=== PATIENT | female | born 1990 | race Caucasian/White ===

== ENCOUNTER → 2018-10-18 16:52 | Outpatient (CLI) | payer MEDICAID, SELFPAY ==
[2018-10-18 14:49] VITALS: BMI 28.2
[2018-10-18 20:14] LABS: Chlamydia Trachomatis by PCR Negative (Negative); Neisserai gonorrhoeae by PCR Negative (Negative); Probe Check PASS; Sample Adequacy Control PASS; Specimen Processing Control PASS
[2018-10-21 14:30] LABS: HPV Reflexed? NOT INDICATED
== END ==
PROVIDERS: Family Provider Family Medicine; PCP Family Medicine; Referring Provider Obstetrics & Gynecology; Visit Provider Obstetrics & Gynecology
DX: Z34.90 Encounter for supervision of normal pregnancy, unspecified, unspecified trimester (principal); Z12.4 Encounter for screening for malignant neoplasm of cervix
CPT/HCPCS: 87086; 87491; 87591; 88175; G0145

== ENCOUNTER → 2018-10-18 18:05 | Outpatient (CLI) | payer MEDICAID, SELFPAY ==
[2018-10-18 14:18] VITALS: BMI 28.2
[2018-10-18 14:49] VITALS: BMI 28.2
--- NOTE | 2018-10-18 18:08 | US_ITS ---
STUDY: SECOND AND THIRD TRIMESTER OBSTETRICAL ULTRASOUND REASON FOR EXAM: Female, 28 years old. Anatomy LMP: 05/28/2018 TECHNIQUE: Transabdominal TECHNICAL QUALITY: Adequate. PRIOR ULTRASOUND: None. FINDINGS: There is a single intrauterine fetus. The fetus is in a variable presentation. There is demonstrated cardiac activity with a heart rate of 161 bpm. There is a grossly normal amniotic fluid volume. The largest amniotic fluid pocket measures 5.6 cm.The placenta is posterior with a marginal previa. There are Grade 0 placental changes. The cervix measures 4.4 cm in length. The adnexal regions are not visualized. BIOMETRY: BPD: 4.67 cm: 20 weeks, 1 days HC: 18.14: 20 weeks, 4 days AC: 15.25: 20 weeks, 4 days FL: 3.25: 20 weeks, 1 days age by current US: 20 weeks, 3 days. DEBBIE by current US: 03/04/2019. Estimated weight: 347 grams, +/- 51 grams, 39 %. Age by LMP: 20 weeks, 3 days. DEBBIE by LMP: 03/04/2019. ANATOMY: Gender: Male Cranium: Normal lateral ventricles. Normal choroid plexus. Normal cerebellum. Normal cisterna magna. Normal face, nose and lips. Chest: Normal 4-chamber heart. Abdomen/Pelvis: Normal diaphragm. Normal stomach. Normal abdominal wall. Normal cord insertion. Normal 3 vessel cord. Question of mild bilateral pyelectasis. Normal bladder. Spine: Normal cervical spine. Normal thoracic spine. Normal lumbar spine. Normal sacrum. Extremities: Normal bilateral upper extremities. Normal bilateral lower extremities. US/OB Anatomy Scan IMPRESSION: Intrauterine gestation with sonographic age of 20 weeks 3 days. Cervix is closed. Positive cardiac activity. Normal amniotic fluid volume. The placenta is posterior with a marginal previa. Question of mild bilateral pyelectasis. Continued ultrasound follow-up is recommended. Electronically Signed: Shabbir Llanos MD at 20:48 EDT Tel , Service support ,
[2018-10-18 20:14] LABS: Absolute Lymphocyte Count 3.59 X10^3/uL (0.83-4.51); Absolute Neutrophil Count 7.1 X10^3/uL (2.0-7.7); Basophil# 0.02 X10^3/uL; Basophil% 0.2 % (0-1); Eosinophil# 0.04 X10^3/uL; Eosinophils% 0.4 % (0-5); Hematocrit 35.4 % (37-47); Hemoglobin 11.6 g/dL (12.0-15.0); Lymphocyte # 3.59 X10^3/ul (4.0); Lymphocyte % 31.6 % (19-41); Mean Corp Hgb Conc 32.8 g/dL (32-36); Mean Corpuscular Hgb 29.7 pg (27.0-32.0); Mean Corpuscular Volume 90.8 fL (81-99); Mean Platelet Vol. 9.2 fl (6.2-12.0); Monocyte# 0.57 X10^3/uL; NRBC Flagged by Analyzer 0 % (0-5); Neutrophil % 62.4 % (47-70); Platelet Count 376 K/mm3 (150-450); RBC Distribution Width CV 12.1 % (11.6-14.6); RBC Distribution Width SD 40.2 fl (35.1-43.9); White Blood Count 11.4 K/mm3 (4.4-11.0)
[2018-10-18 22:13] LABS: HIV - WCH Non-Reactive (Nonreactive); Rubella IgG 7.2 IU/mL
[2018-10-21 01:39] LABS: Rapid Plasmin Reagin (RPR) NONREACTIVE (NONREACTIVE)
== END ==
PROVIDERS: Family Provider Family Medicine; PCP Family Medicine; Visit Provider Obstetrics & Gynecology
DX: Z34.82 Encounter for supervision of other normal pregnancy, second trimester (principal); Z12.4 Encounter for screening for malignant neoplasm of cervix
CPT/HCPCS: 76805; 85025; 86592; 86703; 86762; 86850; 86900; 86901; 87086; 87088; 87491; 87591; 87624; 88175; G0145

== ENCOUNTER → 2018-12-14 12:12 | Outpatient (CLI) | payer MEDICAID, SELFPAY ==
[2018-12-14 11:28] VITALS: BMI 30.8
[2018-12-14 13:03] LABS: Absolute Lymphocyte Count 2.43 X10^3/uL (0.83-4.51); Absolute Neutrophil Count 8.4 X10^3/uL (2.0-7.7); Basophil# 0.02 X10^3/uL; Basophil% 0.2 % (0-1); Eosinophil# 0.03 X10^3/uL; Eosinophils% 0.3 % (0-5); Hematocrit 32.7 % (37-47); Hemoglobin 10.7 g/dL (12.0-15.0); Lymphocyte # 2.43 X10^3/ul (4.0); Lymphocyte % 21.4 % (19-41); Mean Corp Hgb Conc 32.7 g/dL (32-36); Mean Corpuscular Hgb 29.6 pg (27.0-32.0); Mean Corpuscular Volume 90.6 fL (81-99); Mean Platelet Vol. 8.9 fl (6.2-12.0); Monocyte# 0.46 X10^3/uL; Monocyte% 4.1 % (0-10); NRBC Flagged by Analyzer 0 % (0-5); Neutrophil # 8.35 X10^3/uL (2.7-7.7); Neutrophil % 73.6 % (47-70); Platelet Count 356 K/mm3 (150-450); RBC Distribution Width CV 12.6 % (11.6-14.6); RBC Distribution Width SD 41.3 fl (35.1-43.9); Red Blood Count 3.61 M/mm3 (4.2-5.4); White Blood Count 11.3 K/mm3 (4.4-11.0)
[2018-12-14 13:10] LABS: Glucose Challenge Gest 1H 50g 139 mg/dL (70-140)
== END ==
PROVIDERS: Nurse Practitioner Women's Health; Family Provider Family Medicine; PCP Family Medicine; Referring Provider Obstetrics & Gynecology; Visit Provider Obstetrics & Gynecology
DX: Z34.93 Encounter for supervision of normal pregnancy, unspecified, third trimester (principal)
CPT/HCPCS: 36415; 82950; 85025

== ENCOUNTER → 2018-12-19 07:27 | Outpatient (CLI) | payer MEDICAID, SELFPAY ==
[2018-12-14 11:28] VITALS: BMI 30.8
[2018-12-19 08:23] LABS: Glucose GTT-Gestation. Fasting 85 mg/dL (<105)
[2018-12-19 09:49] LABS: Glucose GTT-Gestational 1 Hr 129 mg/dL (<190)
[2018-12-19 10:44] LABS: Glucose GTT-Gestational 2 Hr 99 mg/dL (<165)
[2018-12-19 11:29] LABS: Glucose GTT-Gestational 3 Hr 105 L (<145)
== END ==
PROVIDERS: Family Provider Family Medicine; PCP Family Medicine; Referring Provider Nurse Practitioner Women's Health; Visit Provider Nurse Practitioner Women's Health
DX: R73.09 Other abnormal glucose (principal)
CPT/HCPCS: 36415; 82951; 82952

== ENCOUNTER → 2018-12-21 12:16 | Outpatient (CLI) | payer MEDICAID, SELFPAY ==
[2018-12-14 11:28] VITALS: BMI 30.8
--- NOTE | 2018-12-21 12:19 | US_ITS ---
STUDY: SECOND AND THIRD TRIMESTER OBSTETRICAL ULTRASOUND - LIMITED REASON FOR EXAM: Female, 28 years old follow-up for placenta previa. May 18, 2018. LMP: May 18, 2018. PRIOR ULTRASOUND: Comparison is made with prior sonogram dated October 18, 2018. TECHNIQUE: Transabdominal TECHNICAL QUALITY: Adequate. FINDINGS: There is a single intrauterine fetus. The fetus is in a cephalic presentation. There is demonstrated cardiac activity with a heart rate of 133 bpm. There is a normal amniotic fluid volume. The largest amniotic fluid pocket measures 4.77 x 3.4 cm. The amniotic fluid index (JONATHAN) is 15.95 cm. The placenta is posterior and low lying but not previa in location. The tip of the placenta is 2 cm from the cervical os. There are Grade 1 placental changes. The cervix measures 4.9 cm in length. There is a membrane arising from the placenta 1 cm proximal to the cervical os which enters the amniotic fluid. This is unchanged. BIOMETRY: BPD: 7.75 cm: 31 weeks, 1 days HC: 27.8 cm: 30 weeks, 4 days AC: 25.99 cm: 30 weeks, 1 days FL: 5.72 cm: 30 weeks, 0 days Age by LMP: 29 weeks, 4 days. DEBBIE by LMP: March 04, 2019. age by prior US: 29 weeks, 4 days. DEBBIE by prior US: March 04, 2019. age by current US: 30 weeks, 4 days. DEBBIE by current US: February 25, 2019. Estimated weight: 1527 grams, +/- 223 grams, 60 percentile. US/OB Limited With Biometrics IMPRESSION: Single live intrauterine gestation with a mean gestational age of 29 weeks and 4 days. The measurements obtained today following thin the normal expected range. Low-lying placenta with a membrane arising from the distal tip of the placenta. Electronically Signed: Jacob Wisdom, at 15:57 EDT , Service support ,
== END ==
PROVIDERS: Family Provider Family Medicine; PCP Family Medicine; Referring Provider Nurse Practitioner Women's Health; Visit Provider Nurse Practitioner Women's Health
DX: O44.20 Partial placenta previa NOS or without hemorrhage, unspecified trimester (principal); Z3A.00 Weeks of gestation of pregnancy not specified
CPT/HCPCS: 76816

== ENCOUNTER 2018-12-28 12:04 | Outpatient (CLI) | payer MEDICAID, SELFPAY ==
[2018-12-28 11:33] VITALS: BMI 30.8
[2018-12-28 12:34] VITALS: BMI 30.9
[2018-12-28 13:15] LABS: Protein, Urine (Random) 20.1 mg/dL (<11.9); Protein:Creat Ratio 153 mg/g CRE (0-200)
--- NOTE | 2018-12-31 01:02 | OB.TRI.PN_ITS ---
Progress Notes Date of Service: 12/28/18 Progress Note: Patient presents for triage evaluation secondary to elevated blood pressures in the office FHT: 130 Moderate variability reactive no decelerations category I tracing [place]: Irregular contractions Assessment and plan: Elevated blood pressures in triage within normal limits and labs within normal limits negative proteinuria reactive NST, reassuring maternal and status patient discharged to home to follow-up as scheduled. See problem list details for additional plan information. Laboratory Studies: Laboratory Tests 12/28/18 Range/Units 12:45 U Random Total Protein 20.1 H (<11.9) mg/dL Urine Creatinine 131.00 (NO RANGE EST.) mg/dL Protein/Creatinin Ratio 153 (0-200) mg/g CRE - Problem List (1) Elevated blood pressure affecting in third trimester, antepartum Status: Acute Multi Select Codes - Urinary/Genital Urinary/Genital CPT Codes: 29589-31 non-stress test Interp
== END 2018-12-28 14:00 | disposition home or self-care (01) ==
LOC: WPOUT 12:08 → OBT 12:30
PROVIDERS: Family Provider Family Medicine; PCP Family Medicine; Referring Provider Obstetrics & Gynecology; Visit Provider Obstetrics & Gynecology
DX: O16.3 Unspecified maternal hypertension, third trimester (principal); Z3A.00 Weeks of gestation of pregnancy not specified
CPT/HCPCS: 59025; 59050; 82570; 84156; 99218; G0378

== ENCOUNTER 2019-02-07 16:15 | Outpatient (CLI) | payer MEDICAID, SELFPAY ==
[2019-01-25 10:36] VITALS: BMI 30.9
[2019-02-07 16:42] VITALS: BMI 33.0
--- NOTE | 2019-02-16 04:41 | OB.TRI.PN ---
Progress Notes Date of Service: 02/07/19 Progress Note: Patient presents for triage evaluation secondary to labor contractions FHT: 130 Moderate variability reactive no decelerations category I tracing [place]: Irregular contractions Assessment and plan: False labor reactive NST, reassuring maternal and status patient discharged to home to follow-up scheduled. See problem list details for additional plan information. Multi Select Codes - Urinary/Genital Urinary/Genital CPT Codes: 01105-86 non-stress test Interp
== END 2019-02-07 18:00 | disposition home or self-care (01) ==
LOC: WPOUT 16:21 → WP 16:22
PROVIDERS: Family Provider Family Medicine; PCP Family Medicine; Referring Provider Obstetrics & Gynecology; Visit Provider Obstetrics & Gynecology
DX: O47.9 False labor, unspecified (principal); Z3A.00 Weeks of gestation of pregnancy not specified
CPT/HCPCS: 59025; 59050; 99218; G0378

== ENCOUNTER → 2019-02-08 12:02 | Outpatient (CLI) | payer MEDICAID, SELFPAY ==
[2019-02-08 10:53] VITALS: BMI 33.0
[2019-02-08 12:42] LABS: Absolute Lymphocyte Count 2.46 X10^3/uL (0.83-4.51); Absolute Neutrophil Count 7.4 X10^3/uL (2.0-7.7); Basophil# 0.01 X10^3/uL; Basophil% 0.1 % (0-1); Eosinophil# 0.04 X10^3/uL; Eosinophils% 0.4 % (0-5); Hematocrit 33.8 % (37-47); Hemoglobin 11.2 g/dL (12.0-15.0); Lymphocyte # 2.46 X10^3/ul (4.0); Lymphocyte % 23.6 % (19-41); Mean Corp Hgb Conc 33.1 g/dL (32-36); Mean Corpuscular Hgb 29.8 pg (27.0-32.0); Mean Corpuscular Volume 89.9 fL (81-99); Mean Platelet Vol. 9.1 fl (6.2-12.0); Monocyte# 0.51 X10^3/uL; Monocyte% 4.9 % (0-10); NRBC Flagged by Analyzer 0 % (0-5); Neutrophil # 7.36 X10^3/uL (2.7-7.7); Neutrophil % 70.4 % (47-70); Platelet Count 372 K/mm3 (150-450); RBC Distribution Width CV 12.6 % (11.6-14.6); RBC Distribution Width SD 41.6 fl (35.1-43.9); Red Blood Count 3.76 M/mm3 (4.2-5.4); White Blood Count 10.4 K/mm3 (4.4-11.0)
[2019-02-08 13:20] LABS: Hepatitis B Surface Antigen Non-Reactive (Nonreactive)
== END ==
PROVIDERS: Family Provider Family Medicine; PCP Family Medicine; Referring Provider Obstetrics & Gynecology; Visit Provider Obstetrics & Gynecology
DX: O99.013 Anemia complicating pregnancy, third trimester (principal); Z3A.00 Weeks of gestation of pregnancy not specified
CPT/HCPCS: 36415; 85025; 87081; 87340

== ENCOUNTER → 2019-02-13 13:54 | Outpatient (CLI) | payer MEDICAID, SELFPAY ==
[2019-02-08 10:53] VITALS: BMI 33.0
--- NOTE | 2019-02-13 13:55 | US_ITS ---
STUDY: SECOND AND THIRD TRIMESTER OBSTETRICAL ULTRASOUND REASON FOR EXAM: Female, 28 years old . Low-lying placenta. LMP: May 28, 2018. TECHNIQUE: Transabdominal and Transvaginal TECHNICAL QUALITY: Adequate. PRIOR ULTRASOUND: Comparison is made with prior examination in December 21, 2018. FINDINGS: There is a single intrauterine fetus. The fetus is in a cephalic presentation. There is demonstrated cardiac activity with a heart rate of 129 bpm. There is a normal amniotic fluid volume. The largest amniotic fluid pocket measures 8.9 cm. The amniotic fluid index (JONATHAN) is 25.1 cm. This measures upper limits of normal. The placenta is posterior in location and is not low lying. There are Grade 1 placental changes. The cervix measures 3.9 cm in length. The adnexal regions are not visualized. BIOMETRY: BPD: 9.8 cm: 40 weeks, 1 days HC: 35.6 cm: 41 weeks, 4 days AC: 35.4 cm: 39 weeks, 2 days FL: 7.01 cm: 35 weeks, 6 days CI: 81.8% FL/BPD: 71.5% FL/HC: FL/AC: 19.8% HC/AC: 1.0 age by current US: 39 weeks, 1 days. DEBBIE by current US: February 19, 2019. Estimated weight: 3644 grams, +/- 539 grams, 90 %. age by prior US: 38 weeks, 2 days. DEBBIE by prior US: February 25, 2019. Age by LMP: 37 weeks, 2 days. DEBBIE by LMP: March 04, 2019. ANATOMY: The right renal pelvis measures 4 mm. The left renal pelvis measures 11 mm. This is slightly dilated. US/OB Limited With Biometrics IMPRESSION: Single live intrauterine gestation with a mean gestational age of 38 weeks and 2 days. The measurements obtained today following the normal expected range. Mild dilatation of the left renal pelvis. Electronically Signed: Jacob Wisdom, at 9:19 EST , Service support ,
== END ==
PROVIDERS: Family Provider Family Medicine; PCP Family Medicine; Referring Provider Nurse Practitioner Women's Health; Visit Provider Nurse Practitioner Women's Health
DX: Z34.90 Encounter for supervision of normal pregnancy, unspecified, unspecified trimester (principal)
CPT/HCPCS: 76816; 76830

== ENCOUNTER 2019-03-04 20:25 | Inpatient (IN) | payer MEDICAID, SELFPAY ==
[2018-12-14 11:28] VITALS: BMI 30.8
--- NOTE | 2019-02-12 04:15 | OB.TRI.NOTE ---
- Problem List (1) False labor Status: Acute History of Present Illness Date of Service: 02/07/19 Reason For Visit: LABOR AND DELIVERY History of Present Illness: presents iwth contractions Allergies morphine Allergy (Verified 02/08/19 10:52) Rash pt states does not have allergy to morphine - Pertinent Past Medical History Surgical History: Past Surgical History (Last Reviewed 02/08/19 @ 10:51 by Kenyetta Mendoza) H/O wisdom tooth extraction History of gynecologic surgery Labiaplasty NST - FHR Rate Baby A Baseline: 130 Variability:: Moderate Accelerations:: 15 x 15 Decelerations:: None NST Reactive:: Yes FHR Category:: Category I Uterine Activity:: irregular Multi Select Codes - Urinary/Genital Urinary/Genital CPT Codes: 32005-03 non-stress test Interp
[2019-02-27 16:03] VITALS: BMI 33.0
[2019-03-04 20:40] VITALS: BMI 34.1
[2019-03-04] MEDS: 0.9% Saline Lock 10 ML Syringe IV (21:00)
[2019-03-04 21:18] LABS: Absolute Lymphocyte Count 2.01 X10^3/uL (0.83-4.51); Absolute Neutrophil Count 11.8 X10^3/uL (2.0-7.7); Basophil# 0.02 X10^3/uL; Basophil% 0.1 % (0-1); Eosinophil# 0.02 X10^3/uL; Eosinophils% 0.1 % (0-5); Hemoglobin 10.9 g/dL (12.0-15.0); Lymphocyte # 2.01 X10^3/ul (4.0); Lymphocyte % 13.3 % (19-41); Mean Corpuscular Hgb 29.5 pg (27.0-32.0); Mean Corpuscular Volume 89.4 fL (81-99); Mean Platelet Vol. 8.7 fl (6.2-12.0); Monocyte# 1.17 X10^3/uL; Monocyte% 7.7 % (0-10); NRBC Flagged by Analyzer 0 % (0-5); Neutrophil # 11.83 X10^3/uL (2.7-7.7); Neutrophil % 78.4 % (47-70); Platelet Count 381 K/mm3 (150-450); RBC Distribution Width CV 12.6 % (11.6-14.6); RBC Distribution Width SD 41.4 fl (35.1-43.9); Red Blood Count 3.69 M/mm3 (4.2-5.4); White Blood Count 15.1 K/mm3 (4.4-11.0)
[2019-03-04] MEDS: Lactated Ringers 500 ML 999 ML IV ×2 (21:41→22:20)
[2019-03-04] MEDS: miSOPROStol 25 MCG TABLET VAGINAL (22:27)
[2019-03-04] MEDS: Lactated Ringers 1,000 ML 50 ML IV (22:55)
[2019-03-05] VITALS (15 sets, daily range): BP systolic 92–124; BP diastolic 50–78; PULSE 61–101; RESP 12–20; TEMP 36.1–37.3; O2SAT 95–98
[2019-03-05] MEDS: Acetaminophen 325 MG Tablet PO ×2 (00:24→07:22)
--- NOTE | 2019-03-05 01:33 | PCM.HP.OB ---
- Problem List (1) Polyhydramnios affecting Status: Acute Comment: weekly NSTs (2) Abnormal glucose Status: Acute Comment: normal 3 hr Glucose (3) Anemia affecting Status: Acute Qualifiers: Trimester: third trimester Qualified Code(s): O99.013 - Anemia complicating , third trimester Comment: iron, check cbc at 36 weeks (4) Late care affecting Status: Acute Qualifiers: Trimester: second trimester Qualified Code(s): O09.32 - Supervision of with insufficient care, second trimester (5) Pyelectasis of fetus on ultrasound Status: Acute Comment: left more than right, needs antibiotic after and and follow up with peds urology (6) Rubella non-immune status, antepartum Status: Acute Comment: MMR (7) Status: Acute Qualifiers: Weeks of gestation: 39 weeks Qualified Code(s): Z3A.39 - 39 weeks gestation of Comment: NIPT low risk, declined carrier or ntd screening. anatomy reviewed (8) Supervision of normal Status: Acute Qualifiers: Normal : normal first Trimester: second trimester Qualified Code(s): Z34.02 - Encounter for supervision of normal first , second trimester Comment: PRR DEBBIE 03/04/19 male Pop BF: (Lara- 11; Justen-9) History Date of Admission: 03/05/19 Final DEBBIE: 03/04/19 Gestational age: 40 Weeks and 1 Days History of this : This is a 28 year-old, at 40 weeks gestational age present sfor IOL secondary to polyhydramnios. Surgical History: Surgical History (Last Reviewed 02/20/19 @ 10:28 by Joanie Mabry) H/O wisdom tooth extraction K08.409 History of gynecologic surgery Z98.890 Labiaplasty Allergies morphine Allergy (Verified 03/05/19 00:34) Rash Home Medications: Home Medications PNV 22-iron cb,gl 27 mg iron-folic acid 1 mg-dss 50 mg-dha 250 mg pack 1 pkg PO DAILY ea 10/18/18 ferrous sulfate 324 mg (65 mg iron) tablet,delayed release 65 mg PO DAILY 12/28/18 Acetaminophen [Tylenol Extra Strength] 1,000 mg PO PRN PRN 03/04/19 Smoking Status: Former smoker Substance Use Type: Alcohol Number of Fetus(es): 1 NST - FHR Rate Baby A Baseline: 160 Variability:: Moderate Accelerations:: 15 x 15 Decelerations:: None NST Reactive:: Yes FHR Category:: Category I Uterine Activity:: irregular History Past Pregnancies: Past Pregnancies Delivery Date Name GA/ Weeks Outcome Route Wt Sex Labor Length Anesthesia Delivery Location Provider FOB Labs: Mom's Labs & Results 03/04/19 03/04/19 21:00 21:00 WBC 15.1 H RBC 3.69 L Hgb 10.9 L Hct 33.0 L MCV 89.4 MCH 29.5 MCHC 33.0 RDW Std Deviation 41.4 RDW Coeff of Jordon 12.6 Plt Count 381 MPV 8.7 Immature Gran % (Auto) 0.400 Neut % (Auto) 78.4 H Lymph % (Auto) 13.3 L Parke % (Auto) 7.7 Eos % (Auto) 0.1 Baso % (Auto) 0.1 Absolute Neuts (auto) 11.8 H Absolute Lymphs (auto) 2.01 Nucleated RBC % 0 Blood Type O POSITIVE Antibody Screen NEGATIVE Course Did the patient receive Yes care? Labs Blood Type: O RH: POSITIVE RPR/VDRL/Syphilis Nonreactive Rubella status Equivocal HbSAg Negative Date Done: 02/08/19 Chlamydia Negative Gonorrhea Negative HIV/AIDS Non-Reactive Group B Strep: Negative Current Obstetrical History Gestational Diabetes No: failed first test and 3hour was normal Incompetent Cervix No Infertility No IUGR No Macrosomia No Hypertension/Pre-eclampsia No Placenta Previa/Abruption Yes: marginal previa to low lying placenta-at one point PTL/PROM Yes: ptl and was discharged home Uterine anomaly No Oligohydramnios No Polyhydramnios Yes Multiple gestation No Past Medical History Asthma No Diabetes No Hypertension No Heart disease No Mitral valve prolapse No Neurologic/Seizure disorder/ No Migraines Kidney disease No Liver disease No Varicosities No Clotting disorders/Hx of DVT No Thyroid Dysfunction No Other medical diseases No Psychiatric disorders Yes: situational depression in the past, not currently Major trauma No Abnormal PAP smear No Sleep apnea No Mammogram in the last 2 years No Enter DETAILS of medical anemia during on iron history didnt know she was until 4 months along . Social History Marital Status: SINGLE Alleged father jr juan Levi Smoking Yes Smoking Status Former smoker Substance Use Type Alcohol What date/time did you last august-before she found out she was use any of the above? Expected Delivery Method: Spontaneous Vaginal Review of Systems Constitutional: Reports: Fever, Night Sweats, Malaise Eyes: Denies: Blurred vision, Vision Change HEENT: Denies: Head Aches, Visual Changes Cardiovascular: Denies: Chest Pain, Palpitations Respiratory: Denies: Cough, Shortness of Breath, Wheezing Gastrointestinal: Reports: Diarrhea, Nausea. Denies: Abdominal Pain, Vomiting Genitourinary: Denies: Dysuria, Hematuria Gynecological: Denies: Vaginal bleeding, Vaginal discharge Musculoskeletal: Denies: Joint Pain, Muscle pain Skin: Denies: Lesions, Rash Neurological: Denies: Blurred vision, Focal weakness, Headaches Psychiatric: Denies: Anxiety, Depression Endocrine: Denies: Heat/ Cold Intolerance Hematologic/ Lymphatic: Denies: Easy Bruising, Easy Bleeding Physical Exam General: Alert, Cooperative, No apparent distress HEENT: Atraumatic, Normocephalic. Negative for: Thyromegaly, Lymphadenopathy Cardiovascular: Regular rate Lungs: Normal air movement Abdomen: Soft, Non Tender, Gravid Neurological: Deep Tendon Reflexes 2+/4 and Symmetrical, Neuro grossly intact. Negative for: Clonus PRODUCTION SUPERVISOR OFF SHIFT: Normal external genitalia. Negative for: Vulvar lesions Estimated gestational size: Large for gestational age Presentation: Cephalic Cervix Dilation (cm): 0 Assessment/Plan All Active Problems (Last Reviewed 02/27/19 @ 15:25 by Joanie Mabry) Polyhydramnios affecting (Acute) Abnormal glucose (Acute) Anemia affecting (Acute) Late care affecting (Acute) Pyelectasis of fetus on ultrasound (Acute) Rubella non-immune status, antepartum (Acute) (Acute) Supervision of normal (Acute) Elevated blood pressure affecting in third trimester, antepartum (Resolved) False labor (Resolved) Low lying placenta nos or without hemorrhage, third trimester (Resolved) Marginal placenta previa (Resolved) This is a 28 year-old, , at 40 weeks gestational age presents for IOL polyhydramnios. Patient presents IOL, plan management for , pitocin/AROM cytotec first, then likely FB Pain management: Plans epidural. GBS negative. Management of any complications: polyhydramnios, pyelectasis. I have reviewed the [facility] and made any clinically relevant updates.
[2019-03-05] MEDS: miSOPROStol 50 MCG TABLET VAGINAL (02:04)
[2019-03-05] MEDS: 0.9% Normal Saline Single 100 ML IV.SOLN. IY (08:03)
[2019-03-05] MEDS: oxyCODONE 5 MG Tablet PO (08:07)
--- NOTE | 2019-03-05 08:17 | PN_ITS ---
Progress Note FHT: 150 minimal?moderate variability reactive no decelerations category II tracing overall reassuring Isabella: Every 2-3 min contractions Patient received 1 dose of OxyIR overnight. Patient is now 1 to 2 cm, Ann bulb placed. Plan light breakfast and will start Pitocin. Epidural when desired
[2019-03-05] MEDS: Lactated Ringers 500 ML 999 ML IV (08:54)
[2019-03-05] MEDS: fentaNYL-bupivacaine (epidural) 100 ML BAG EPIDURAL (09:40)
[2019-03-05] MEDS: Oxytocin 30 units/NS 500 ml 30 UNITS/500 ML IV.SOLN IV (10:07)
[2019-03-05] MEDS: Lactated Ringers 1,000 ML 999 ML IV (10:55)
[2019-03-05] MEDS: Sodium Citrate/Citric Acid 30 ML UDC PO (11:26)
[2019-03-05] MEDS: Cefazolin 2 GM in 0.9% Normal Saline 100 ML IV (11:36)
--- NOTE | 2019-03-05 11:41 | PCM.PN.BLA ---
Progress Note fb spontaneously expelled as patient was getting epidural. patient checked and upon exam spontaneously ruptured light mec fluid copious amounts. presentating part felt different- bedside ultrasound performed and patient noted to now be breech. discussed and plan for immediate .
--- NOTE | 2019-03-05 11:45 | PCM.OPRPT ---
Problem List (1) Polyhydramnios affecting Status: Acute Comment: weekly NSTs (2) Abnormal glucose Status: Acute Comment: normal 3 hr Glucose (3) Anemia affecting Status: Acute Qualifiers: Trimester: third trimester Qualified Code(s): O99.013 - Anemia complicating , third trimester Comment: iron, check cbc at 36 weeks (4) Late care affecting Status: Acute Qualifiers: Trimester: second trimester Qualified Code(s): O09.32 - Supervision of with insufficient care, second trimester (5) Pyelectasis of fetus on ultrasound Status: Acute Comment: left more than right, needs antibiotic after and and follow up with peds urology (6) Rubella non-immune status, antepartum Status: Acute Comment: MMR (7) Status: Acute Qualifiers: Weeks of gestation: 39 weeks Qualified Code(s): Z3A.39 - 39 weeks gestation of Comment: NIPT low risk, declined carrier or ntd screening. anatomy reviewed (8) Supervision of normal Status: Acute Qualifiers: Normal : normal first Trimester: second trimester Qualified Code(s): Z34.02 - Encounter for supervision of normal first , second trimester Comment: PRR DEBBIE 03/04/19 male Pop BF: (Lara- 11; Justen-9) (9) Breech presentation Status: Acute Delivery Classification: SUKHWINDER Final DEBBIE: 03/04/19 Gestational age: 40 Weeks and 1 Days stock lifter: Angélica Jones Type of Anesthesia:: Spinal Special Medications: none Implants Used: none Date of Procedure: 03/05/19 Pre-Operative Diagnosis: polydramnios, breech Post-Operative Diagnosis: same Indications for : Breech Description of Procedure: patient had been admitted for IOL secondary topolyhydramnios and underwent cytotec then estes bulb. patient had originally been felt to be cephalic however at time of vaginal exam there was spontaneous rupture of copious amounts of fluid, patient had been polyhydramnios. upon exam it was felt to be abnormal and US confirmed breech. decision for csection was made. The patient was placed in the dorsal supine position with leftward tilt. Patient was prepped and draped in the normal sterile fashion. Pfannenstiel skin incision was made with the scalpel and carried through to the underlying layer of fascia with the scalpel. Fascia was nicked in the midline and the incision extended laterally. The rectus bellies were dissected off superiorly and inferiorly with out complication both sharply and bluntly. The peritoneum was entered digitally. The incision was stretched and a low transverse uterine incision was made with the scalpel. The infant's buttox was delivered atraumatically followed by the anterior and posterior shoulders without complication the rest of the delivered nc x 1 reduced over the head. The cord was clamped and cut and the was handed off to awaiting nurse. The placenta was delivered spontaneously immediately following and was noted to be intact and have a three-vessel cord. The uterus was exteriorized cleared of all clots and debris, and the incision was closed in a double layer closure using #1 Monocryl. The ovaries and fallopian tubes were noted to be within normal limits. The uterus was returned to the maternal abdomen and gutters were cleared of all clots and debris. The peritoneum was closed with 3-0 Monocryl in a running fashion. Gloves were changed prior to fascial closure. Fascia was closed with 0 PDS in a running fashion. Subcutaneous tissue was copiously irrigated and the skin was closed with 3-0 Monocryl in a subcuticular fashion. Mepilex dressing was applied without complication. Patient was taken to recovery in stable condition. It was discussed with the patient that based on the clinical information obtained during this encounter, combined with her history, at this time I would recommend either vaginal or cs for future deliveries if further pregnancies are desired. Amniotic Membrane Rupture Type: Spontaneous Amniotic Fluid Description: Lightly stained meconium Placenta Disposition: [facility] Drain: Estes to straight drain Cord Entanglement: Around neck x 1, loose Cord Vessel Description: 3 Vessels Esitmated Blood Loss (ml): 700 Gender: Male Delayed cord clamping: Yes Antibiotic Given: Ancef 2 grams IV x1 Complications: None - Admit VTE Documentation VTE Present on Admission: No VTE Mechan Device Prophylaxis: SCD's Multi Select Codes - Urinary/Genital Urinary/Genital CPT Codes: 97448 Delivery [facility]
[2019-03-05] MEDS: Oxytocin 30 units/NS 500 ml 30 UNITS/500 ML IV.SOLN 167 UNITS IV (12:59)
--- NOTE | 2019-03-05 14:05 | NURSING ---
Epidural catheter removed per BBiddle BUGGY LOADER at 1230. Blue tip intact and pt tolerated well
[2019-03-05] MEDS: HYDROmorphone 1 MG/ML Syringe IV (14:20)
[2019-03-05] MEDS: Lactated Ringers 1,000 ML 100 ML IV (16:26)
[2019-03-05] MEDS: Ketorolac 30 MG/ML Syringe IV ×2 (18:23→23:36)
[2019-03-05] MEDS: 0.9% Saline Lock 10 ML Syringe IV (18:23)
[2019-03-05] MEDS: Enoxaparin 40 MG/0.4 ML Syringe SC (23:50)
[2019-03-06 04:00] VITALS: BP 100/59; PULSE 89; RESP 16; TEMP 37.1
[2019-03-06] MEDS: Ketorolac 30 MG/ML Syringe IV ×3 (05:37→18:45)
[2019-03-06] MEDS: oxyCODONE 5 MG Tablet PO ×3 (05:37→15:22)
[2019-03-06 06:15] LABS: Hematocrit 30.3 % (37-47); Hemoglobin 9.9 g/dL (12.0-15.0); Mean Corp Hgb Conc 32.7 g/dL (32-36); Mean Corpuscular Hgb 28.9 pg (27.0-32.0); Mean Corpuscular Volume 88.6 fL (81-99); Mean Platelet Vol. 8.9 fl (6.2-12.0); Platelet Count 335 K/mm3 (150-450); RBC Distribution Width CV 12.7 % (11.6-14.6); RBC Distribution Width SD 41.2 fl (35.1-43.9); Red Blood Count 3.42 M/mm3 (4.2-5.4)
--- NOTE | 2019-03-06 06:32 | NURSING ---
patient complained of no pain at this time so this nurse attempted to get patient out of bed, patient made it to sitting on the side of the bed and complained of a lot of pain and stated that she could not get up at the moment. Patient medicated with pain meds at this time and was made aware of the importance of getting out of bed
--- NOTE | 2019-03-06 07:52 | PN.OBGYN_ITS ---
Patient Problems: Active and Suspected Problems (Last Reviewed 02/27/19 @ 15:25 by Joanie Mabry) Breech presentation (Acute) Subjective: doing well no complaints pain controlled no CP SOB N V up to bedside tolerating po lochia moderate, baby in SCN for glucose issues. Patient pumping - Physical Exam Vitals/I&O's: Vital Signs Temp Pulse Resp BP Pulse Ox 98.8 F 89 16 100/59 L 95 03/06/19 04:00 03/06/19 04:00 03/06/19 04:00 03/06/19 04:00 03/05/19 18:31 Oxygen Delivery Method Room Air Weight: 218 lb Body Mass Index (BMI) 34.1 Intake and Output for Last 24 Hours 03/04/19 03/05/19 03/06/19 23:59 23:59 23:59 Intake Total 1000 / 1000 3785.45 / 3785.45 Output Total 3550 / 3550 900 / 900 Balance 1000 / 1000 235.45 / 235.45 -900 / -900 General: Oriented x3 Abdomen: Soft, Non-Distended, - - FF below U. Tolerated exam well Laboratory Results 03/06/19 05:45: WBC 19.0 H, RBC 3.42 L, Hgb 9.9 L, Hct 30.3 L, MCV 88.6, MCH 28.9, MCHC 32.7, RDW Std Deviation 41.2, RDW Coeff of Jordon 12.7, Plt Count 335, MPV 8.9 Current Medications Acetaminophen (Tylenol) 1,000 mg PO Q8H PRN PRN Reason: Pain Score 1-3/10 Bisacodyl (Dulcolax) 10 mg RECTAL UD PRN PRN Reason: If no BM Diphenhydramine HCl (Benadryl) 25 mg PO Q6H PRN PRN PRN Reason: ITCHING Stop: 03/06/19 12:51 Enoxaparin Sodium (Lovenox) 40 mg SC DAILY@0000 PRIYA Last Admin: 03/05/19 23:50 Dose: 40 mg Documented by: Hydrocortisone (Hytone) 1 applic TOPICAL TID PRN PRN; Protocol PRN Reason: Discomfort Hydromorphone HCl (Dilaudid Inj) 0.5 - 1 mg IV Q2H PRN PRN PRN Reason: Pain Score 6-10/10 Last Admin: 03/05/19 14:20 Dose: 1 mg Documented by: Lactated Ringer's () 1,000 mls @ 100 mls/hr IV .Q10H [facility] Last Admin: 03/06/19 03:12 Dose: Not Given Documented by: Naloxone HCl 4 mg/ Dextrose 504 mls @ 0 mls/hr IV .Q0M PRN; Protocol PRN Reason: Respiratory depression Ketorolac Tromethamine (Toradol) 30 mg IV Q6 [facility] Stop: 03/07/19 06:01 Last Admin: 03/06/19 05:37 Dose: 30 mg Documented by: Measles/Mumps/Rubella Vaccine Live (M-M-R Ii) 0.5 ml SC .ONCE ONE Stop: 03/06/19 10:01 Methylergonovine Maleate (Methergine) 0.2 mg IM X1 PRN PRN Reason: Uterine Atony Nalbuphine HCl (Nubain) 5 mg IV Q3H PRN PRN PRN Reason: ITCHING Stop: 03/06/19 12:51 Naloxone HCl (Narcan) 0.02 mg IV Q1M PRN PRN Reason: RR <10 and pt unresponsive Naproxen (Naprosyn) 250 - 500 mg PO Q8H PRN PRN PRN Reason: Pain Score 1-3/10 Ondansetron HCl (Zofran) 4 mg IV Q4H PRN PRN PRN Reason: Nausea Oxycodone HCl (Oxyir) 5 - 10 mg PO Q4H PRN PRN PRN Reason: Pain Score 1-10/10 Last Admin: 03/06/19 05:37 Dose: 5 mg Documented by: Prochlorperazine Edisylate (Compazine Iv) 10 mg IV Q6H PRN PRN PRN Reason: NAUSEA Senna/Docusate Sodium (Senokot-S, Coleen-Colace) 0 tablet PO DAILY PRN PRN Reason: Constipation Simethicone (Mylicon) 80 mg PO PCHS PRN PRN Reason: Indigestion/stomach pain Sodium Chloride () 5 - 15 ml IV UD PRN PRN Reason: SALINE FLUSH Last Admin: 03/05/19 18:23 Dose: 10 ml Documented by: Medical Necessity - Tobacco Use Smoking Status: Former smoker Assessment/Plan All Active Problems (Last Reviewed 02/27/19 @ 15:25 by Joanie Mabry) Breech presentation (Acute) Polyhydramnios affecting (Acute) Abnormal glucose (Acute) Anemia affecting (Acute) Late care affecting (Acute) Pyelectasis of fetus on ultrasound (Acute) Rubella non-immune status, antepartum (Acute) (Acute) Supervision of normal (Acute) Elevated blood pressure affecting in third trimester, antepartum (Resolved) False labor (Resolved) Low lying placenta nos or without hemorrhage, third trimester (Resolved) Marginal placenta previa (Resolved) s/p LTCS PPD # 1 1. routine post care 2. breast feeding- support given 3. rh positive 4. rubella equivocal-needs MMR
[2019-03-06 08:00] VITALS: BP 90/46; PULSE 91; RESP 16; TEMP 36.9
[2019-03-06] MEDS: Senna/Docusate Sodium 1 Tablet PO (09:47)
[2019-03-06 11:41] VITALS: BP 97/57
[2019-03-06] MEDS: 0.9% Saline Lock 10 ML Syringe IV ×2 (11:44→18:45)
[2019-03-06 14:00] VITALS: BP 87/49; PULSE 92; RESP 20; TEMP 36.3
--- NOTE | 2019-03-06 16:21 | CASEMGMT ---
Social Work Labor and Delivery Unit Social work consult noted. Chart has been reviewed. Noted that baby has been transferred to the [facility] at [place], where this group underwriter is also the assigned social services coordinator. Plan: Meet with patient/mother of baby as time allows on 03.07.2019. -JOSE DAVID Mantilla, CONTINUOUS DRIER OPERATOR
[2019-03-06 20:11] VITALS: BP 100/47; PULSE 90; RESP 18; TEMP 36.4; O2SAT 98
[2019-03-07] MEDS: Ketorolac 30 MG/ML Syringe IV ×2 (00:56→06:27)
[2019-03-07] MEDS: Enoxaparin 40 MG/0.4 ML Syringe SC (00:57)
[2019-03-07] MEDS: 0.9% Saline Lock 10 ML Syringe IV ×2 (00:57→06:28)
[2019-03-07 02:28] VITALS: BP 95/52; PULSE 70; RESP 18; TEMP 36.7
[2019-03-07] MEDS: Senna/Docusate Sodium 1 Tablet PO (07:44)
[2019-03-07 07:45] VITALS: BP 102/55; PULSE 76; RESP 18; TEMP 36.2
--- NOTE | 2019-03-07 07:49 | PCM.PN.OB ---
Patient Problems: Active and Suspected Problems (Last Reviewed 02/27/19 @ 15:25 by Joanie Mabry) Breech presentation (Acute) Subjective: doing well no complaints pain controlled no CP SOB N V ambulating well tolerating po lochia moderate, has been pumping-baby in SCN. Will attempt to breastfeed today. - Physical Exam Vitals/I&O's: Vital Signs Temp Pulse Resp BP Pulse Ox 98.1 F 70 18 95/52 L 98 03/07/19 02:28 03/07/19 02:28 03/07/19 02:28 03/07/19 02:28 03/06/19 20:11 Oxygen Delivery Method Room Air Weight: 218 lb Body Mass Index (BMI) 34.1 Intake and Output for Last 24 Hours 03/05/19 03/06/19 03/07/19 23:59 23:59 23:59 Intake Total 3785.45 / 3785.45 Output Total 3550 / 3550 2300 / 2300 Balance 235.45 / 235.45 -2300 / -2300 General: Alert, Oriented x3 Abdomen: Soft, Non Tender, - - FF below U Current Medications Acetaminophen (Tylenol) 1,000 mg PO Q8H PRN PRN Reason: Pain Score 1-3/10 Bisacodyl (Dulcolax) 10 mg RECTAL UD PRN PRN Reason: If no BM Enoxaparin Sodium (Lovenox) 40 mg SC DAILY@0000 PRIYA Last Admin: 03/07/19 00:57 Dose: 40 mg Documented by: Hydrocortisone (Hytone) 1 applic TOPICAL TID PRN PRN; Protocol PRN Reason: Discomfort Hydromorphone HCl (Dilaudid Inj) 0.5 - 1 mg IV Q2H PRN PRN PRN Reason: Pain Score 6-10/10 Last Admin: 03/05/19 14:20 Dose: 1 mg Documented by: Naloxone HCl 4 mg/ Dextrose 504 mls @ 0 mls/hr IV .Q0M PRN; Protocol PRN Reason: Respiratory depression Methylergonovine Maleate (Methergine) 0.2 mg IM X1 PRN PRN Reason: Uterine Atony Naloxone HCl (Narcan) 0.02 mg IV Q1M PRN PRN Reason: RR <10 and pt unresponsive Naproxen (Naprosyn) 250 - 500 mg PO Q8H PRN PRN PRN Reason: Pain Score 1-3/10 Ondansetron HCl (Zofran) 4 mg IV Q4H PRN PRN PRN Reason: Nausea Oxycodone HCl (Oxyir) 5 - 10 mg PO Q4H PRN PRN PRN Reason: Pain Score 1-10/10 Last Admin: 03/06/19 15:22 Dose: 10 mg Documented by: Prochlorperazine Edisylate (Compazine Iv) 10 mg IV Q6H PRN PRN PRN Reason: NAUSEA Senna/Docusate Sodium (Senokot-S, Coleen-Colace) 0 tablet PO DAILY PRN PRN Reason: Constipation Last Admin: 03/07/19 07:44 Dose: 1 tablet Documented by: Simethicone (Mylicon) 80 mg PO PCHS PRN PRN Reason: Indigestion/stomach pain Sodium Chloride () 5 - 15 ml IV UD PRN PRN Reason: SALINE FLUSH Last Admin: 03/07/19 06:28 Dose: 10 ml Documented by: Medical Necessity - Tobacco Use Smoking Status: Former smoker Assessment/Plan All Active Problems (Last Reviewed 02/27/19 @ 15:25 by Joanie Mabry) Breech presentation (Acute) Polyhydramnios affecting (Acute) Abnormal glucose (Acute) Anemia affecting (Acute) Late care affecting (Acute) Pyelectasis of fetus on ultrasound (Acute) Rubella non-immune status, antepartum (Acute) (Acute) Supervision of normal (Acute) Elevated blood pressure affecting in third trimester, antepartum (Resolved) False labor (Resolved) Low lying placenta nos or without hemorrhage, third trimester (Resolved) Marginal placenta previa (Resolved) s/p LTCS PPD # 2 1. routine post care 2. breast feeding- support given 3. rh positive 4. rubella equivocal
[2019-03-07] MEDS: Acetaminophen 500 MG Tablet 1000 MG PO ×2 (08:00→21:36)
[2019-03-07] MEDS: oxyCODONE 5 MG Tablet PO (11:05)
--- NOTE | 2019-03-07 13:58 | CASEMGMT ---
Social Work Labor and Delivery Unit Presented to mother of baby (MOB) room for social work consult. MOB's mother in the room and reports MOB is showering right now. PLAN: Will attempts later today as time allows or on 03.08.2019 to see MOB. -JOSE DAVID Mantilla, HEAD GOLF PROFESSIONAL
[2019-03-07 15:30] VITALS: BP 100/65; PULSE 79; RESP 18; TEMP 37.2; O2SAT 100
[2019-03-07] MEDS: Naproxen 250 MG Tablet PO (15:59)
--- NOTE | 2019-03-07 19:07 | DCINST_ITS ---
Discharge Diet: No Restrictions Discharge Activity: May Not Drive - for 2 weeks, May not drive while taking narcotic pain medications., May Shower, May Take a Tub Bath - in 7 days May resume sexual activity in: 4-6 weeks Lifting Restrictions: 20 pounds Additional Activity Instructions:: Nothing in the vagina for 4-6 weeks. You may return to work/school in 6 weeks. Call your doctor if your incision/area has: Continuous Slow Oozing, Sudden Increased Bleeding, Increased Pain/ Swelling, Increased Redness, Foul Smelling Discharge Call your doctor if you observe: Fever of 101 or Higher, Using more than one pad per hour - for 2 hours Suture Line Care: Avoid Pulling/Pushing, Avoid Pinching/Bending Cleanse incision/area with: Keep Dressing Clean & Dry Additional Instructions: If you experience any of the following, contact your healthcare provider. * Bleeding that soaks a pad every hour for 2 hours * Fever 100.4 or higher * Unrelieved incision or abdominal pain * Swelling, redness, discharge or bleeding from your incision or episiotomy site * Your incision begins to separate * Problems urinating (including inability to urinate or burning while urinating). * Visual changes * Severe headache * Flu-like symptoms * Pain or redness in one of both of your breasts * Pain, warmth, tenderness or swelling in your legs, especially the calf area * Frequent nausea and vomiting * Symptoms of depression or anxiety If you experience any of the following, call 911 or go to the nearest Emergency Room. * Chest pain * Problems breathing * Seizure activity * Partial or complete paralysis of a body part, slurred speech, weakness or drooping of the face, or a sudden inability to walk or hold your balance Allergies/Adverse Reactions: Allergies morphine Allergy (Verified 03/05/19 00:34) Rash Medications to take at Discharge PNV 22-iron cb,gl 27 mg iron-folic acid 1 mg-dss 50 mg-dha 250 mg pack 1 pkg PO DAILY ea 10/18/18 ferrous sulfate 324 mg (65 mg iron) tablet,delayed release 65 mg PO DAILY 12/28/18 Acetaminophen [Tylenol Extra Strength] 1,000 mg PO PRN PRN 03/04/19 Naproxen [Naprosyn] 250 - 500 mg PO Q8H PRN PRN #30 tab 03/07/19 Oxycodone HCl/Acetaminophen [Percocet 5-325] 1 - 2 tablet PO Q6H PRN PRN 7 Days #28 tablet 03/07/19 The following prescriptions were given: Naproxen [Naprosyn] 250 - 500 mg PO Q8H PRN PRN #30 tab PRN Reason: MILD PAIN Transmission Status: Pending to [id number] Oxycodone HCl/Acetaminophen [Percocet 5-325] 1 - 2 tablet PO Q6H PRN PRN 7 Days #28 tablet PRN Reason: Moderate-Severe pain Transmission Status: Received by [id number] Follow-Up: Call to make an appointment with your doctor for an incision check in 1-2 weeks. You will also need a 6 week post- follow up appointment. Test results from this visit will be discussed in further detail at your follow- up appointment, if applicable. Please Follow Up With: Jennifer Henriquez MD - Call to make an appointment for an incision check in 1-2 [phone] When: You will need a post- check in 6 weeks. Primary Care Physician: Jan Rodarte MD [Primary Care Provider] -
[2019-03-07 21:25] VITALS: BP 95/43; PULSE 79; RESP 16; TEMP 36.4
[2019-03-08] MEDS: Enoxaparin 40 MG/0.4 ML Syringe SC (00:21)
[2019-03-08 03:04] VITALS: BP 99/61; PULSE 64; RESP 16; TEMP 36.1
[2019-03-08] MEDS: Acetaminophen 500 MG Tablet 1000 MG PO ×2 (05:15→13:32)
[2019-03-08 07:00] VITALS: BP 95/57; PULSE 64; RESP 16; TEMP 36.1; O2SAT 97
[2019-03-08 07:49] VITALS: BP 100/72; PULSE 80; RESP 16; TEMP 36.4; O2SAT 97
--- NOTE | 2019-03-08 07:49 | PCM.PN.OB ---
Patient Problems: Active and Suspected Problems (Last Reviewed 02/27/19 @ 15:25 by Joanie Mabry) Breech presentation (Acute) Subjective: doing well no complaints pain controlled no CP SOB N V ambulating well tolerating po lochia moderate, going well - Physical Exam Vitals/I&O's: Vital Signs Temp Pulse Resp BP Pulse Ox 97 F L 64 16 99/61 100 03/08/19 03:04 03/08/19 03:04 03/08/19 03:04 03/08/19 03:04 03/07/19 15:30 Oxygen Delivery Method Room Air Weight: 218 lb Body Mass Index (BMI) 34.1 Intake and Output for Last 24 Hours 03/06/19 03/07/19 03/08/19 23:59 23:59 23:59 Output Total 2300 / 2300 Balance -2300 / -2300 General: Alert, Oriented x3 Current Medications Acetaminophen (Tylenol) 1,000 mg PO Q8H PRN PRN Reason: Pain Score 1-3/10 Last Admin: 03/08/19 05:15 Dose: 1,000 mg Documented by: Bisacodyl (Dulcolax) 10 mg RECTAL UD PRN PRN Reason: If no BM Enoxaparin Sodium (Lovenox) 40 mg SC DAILY@0000 PRIYA Last Admin: 03/08/19 00:21 Dose: 40 mg Documented by: Hydrocortisone (Hytone) 1 applic TOPICAL TID PRN PRN; Protocol PRN Reason: Discomfort Hydromorphone HCl (Dilaudid Inj) 0.5 - 1 mg IV Q2H PRN PRN PRN Reason: Pain Score 6-10/10 Last Admin: 03/05/19 14:20 Dose: 1 mg Documented by: Naloxone HCl 4 mg/ Dextrose 504 mls @ 0 mls/hr IV .Q0M PRN; Protocol PRN Reason: Respiratory depression Methylergonovine Maleate (Methergine) 0.2 mg IM X1 PRN PRN Reason: Uterine Atony Naloxone HCl (Narcan) 0.02 mg IV Q1M PRN PRN Reason: RR <10 and pt unresponsive Naproxen (Naprosyn) 250 - 500 mg PO Q8H PRN PRN PRN Reason: Pain Score 1-3/10 Last Admin: 03/07/19 15:59 Dose: 500 mg Documented by: Ondansetron HCl (Zofran) 4 mg IV Q4H PRN PRN PRN Reason: Nausea Oxycodone HCl (Oxyir) 5 - 10 mg PO Q4H PRN PRN PRN Reason: Pain Score 1-10/10 Last Admin: 03/07/19 11:05 Dose: 5 mg Documented by: Prochlorperazine Edisylate (Compazine Iv) 10 mg IV Q6H PRN PRN PRN Reason: NAUSEA Senna/Docusate Sodium (Senokot-S, Coleen-Colace) 0 tablet PO DAILY PRN PRN Reason: Constipation Last Admin: 03/07/19 07:44 Dose: 1 tablet Documented by: Simethicone (Mylicon) 80 mg PO PCHS PRN PRN Reason: Indigestion/stomach pain Sodium Chloride () 5 - 15 ml IV UD PRN PRN Reason: SALINE FLUSH Last Admin: 03/07/19 06:28 Dose: 10 ml Documented by: Medical Necessity - Tobacco Use Smoking Status: Former smoker Assessment/Plan All Active Problems (Last Reviewed 02/27/19 @ 15:25 by Joanie Mabry) Breech presentation (Acute) Polyhydramnios affecting (Acute) Abnormal glucose (Acute) Anemia affecting (Acute) Late care affecting (Acute) Pyelectasis of fetus on ultrasound (Acute) Rubella non-immune status, antepartum (Acute) (Acute) Supervision of normal (Acute) Elevated blood pressure affecting in third trimester, antepartum (Resolved) False labor (Resolved) Low lying placenta nos or without hemorrhage, third trimester (Resolved) Marginal placenta previa (Resolved) s/p LTCS PPD # 3 1. routine post care 2. breast feeding- support given 3. rh positive 4. rubella immune
[2019-03-08] MEDS: Senna/Docusate Sodium 1 Tablet PO (07:55)
[2019-03-08] MEDS: Naproxen 250 MG Tablet PO ×2 (07:55→16:46)
[2019-03-08 13:20] VITALS: BP 99/64; PULSE 74; RESP 16; TEMP 36.4; O2SAT 96
[2019-03-08] MEDS: Hydrocortisone 2.5% Crm 1 APPLIC TOPICAL (13:27)
--- NOTE | 2019-03-08 19:05 | NURSING ---
1400 pt returned ipad and stated she and her watched the cpr video. denies having any questions. she states the babys follow up ped is .
--- NOTE | 2019-03-14 09:19 | PCM.DC.SUM ---
Discharge Date and Diagnosis Date of Admission: 03/05/19 Date of Discharge: 03/08/19 Hospital Course and Treatment Consultations 03/04/19 20:31 Consult: Anesthesia Routine Comment: Reason For Exam: Labor Operations: - - ltcs Summary of Care Provided: The patient is a 28 year old F presented for IOL secondary to polyhydramnios. after cytotec IOL and estes bulb and pitocin when the patient had SROM copious amounts of fluid emerged and position was noted to be different and was noted to be breech. primary performed without complication. patient underwent a section and had a routine recovery with a return of bowel and bladder function, was ambulating, voiding, and tolerating po, and was stable for discharge to home on POD 3. - Physical Exam Vitals/I&O's: Vital Signs Temp Pulse Resp BP Pulse Ox 97.5 F L 74 16 99/64 96 03/08/19 13:20 03/08/19 13:20 03/08/19 13:20 03/08/19 13:20 03/08/19 13:20 Oxygen Delivery Method Room Air Weight: 218 lb Body Mass Index (BMI) 34.1 Discharge Diet: No Restrictions Discharge Activity: May Not Drive - for 2 weeks, May not drive while taking narcotic pain medications., May Shower, May Take a Tub Bath - in 7 days May resume sexual activity in: 4-6 weeks Additional Activity Instructions:: Nothing in the vagina for 4-6 weeks. You may return to work/school in 6 weeks. Call your doctor if your incision/area has: Continuous Slow Oozing, Sudden Increased Bleeding, Increased Pain/ Swelling, Increased Redness, Foul Smelling Discharge Call your doctor if you observe: Fever of 101 or Higher, Using more than one pad per hour - for 2 hours Suture Line Care: Avoid Pulling/Pushing, Avoid Pinching/Bending Cleanse incision/area with: Keep Dressing Clean & Dry Home Medications: Medications to take at Discharge PNV 22-iron 27 mg iron-folic acid 1 mg-docusate 50 mg-dha 250 mg pack 1 pkg PO DAILY ea 10/18/18 ferrous sulfate 324 mg (65 mg iron) tablet,delayed release 65 mg PO DAILY 12/28/18 Acetaminophen [Tylenol Extra Strength] 1,000 mg PO PRN PRN 03/04/19 Naproxen [Naprosyn] 250 - 500 mg PO Q8H PRN PRN #30 tab 03/07/19 Following Prescrptions Were Given to Patient: Naproxen [Naprosyn] 250 - 500 mg PO Q8H PRN PRN #30 tab PRN Reason: MILD PAIN Transmission Status: [id number] Primary Care Physician: Jan Rodarte MD [Primary Care Provider] - Please Follow Up With: Jennifer Henriquez MD - Call to make an appointment for an incision check in 1-2 [phone] When: You will need a post- check in 6 weeks. Medical Necessity - Tobacco Use Smoking Status: Former smoker Meaningful Use Info Meaningful Use Diagnoses (Choose all that apply): None applicable
== END 2019-03-08 18:51 | disposition home or self-care (01) | DRG 540 ==
PROVIDERS: Admitting Provider Obstetrics & Gynecology; Family Provider Family Medicine; PCP Family Medicine; Referring Provider Obstetrics & Gynecology; Visit Provider Obstetrics & Gynecology
DX: O40.3XX0 Polyhydramnios, third trimester, not applicable or unspecified (principal); O32.1XX0 Maternal care for breech presentation, not applicable or unspecified; O42.02 Full-term premature rupture of membranes, onset of labor within 24 hours of rupture; O69.81X0 Labor and delivery complicated by cord around neck, without compression, not applicable or unspecified; O99.02 Anemia complicating childbirth; D64.9 Anemia, unspecified; O77.0 Labor and delivery complicated by meconium in amniotic fluid; O35.8XX0 Maternal care for other (suspected) fetal abnormality and damage, not applicable or unspecified; O99.814 Abnormal glucose complicating childbirth; Z3A.40 40 weeks gestation of pregnancy; Z37.0 Single live birth; Z87.891 Personal history of nicotine dependence; Z78.9 Other specified health status
CPT/HCPCS: 59025; 59050; 76815; 85025; 85027; 86850; 86900; 86901; 99218; 99251; J7120; A4216; G0378; G0463; J2405

== ENCOUNTER 2020-06-27 16:35 | Emergency (ER) | payer MEDICAID, SELFPAY ==
[2020-05-15 13:54] VITALS: BMI 32.8
[2020-06-27 16:35] VITALS: BP 120/65; PULSE 78; RESP 16; TEMP 36.1; O2SAT 97; BMI 33.6
--- NOTE | 2020-06-27 17:43 | ED.VIS.FALL ---
HPI HPI - Fall History of Present Illness Chief Complaint: Fall Narrative Narrative: Patient presents with coccyx pain after mechanical fall. She has no other injury she did not hit her head. She has no neck pain she has no extremity pain she has no abdominal pain or lumbar or any kind of back pain. She has no lower extremity pain she is able to ambulate her main problem is that she has quite a bit of pain when she tries to sit. Past medical history: none Medications: Reviewed Social history: Noncontributory Review of systems: Musculoskeletal: Coccyx pain as in HPI Skin: No abrasions or lacerations Neurological: No weakness or paresthesias Hematologic: No easy bleeding or easy bruising PFSH [facility] Medical History (Updated 06/27/20 @ 19:[address] Jerry Mayers MD) Depression Home Medications venlafaxine 75 mg capsule,extended release 24 hr 75 mg PO DAILY #90 cap 05/15/20 [Rx Last Taken Unknown] lorazepam 1 mg tablet 1 mg PO DAILY PRN #10 tablet 06/13/20 [Rx Last Taken Unknown] hydrocodone-acetaminophen 1 tab PO BID PRN 3 Days #7 tab 06/27/20 [Rx Last Taken Unknown] Allergy/AdvReac Type Severity Reaction Status Date / Time morphine Allergy Rash Verified 06/27/20 16:37 Family History Father Heart disease open heart surgery Surgical History H/O wisdom tooth extraction H/O: History of gynecologic surgery Social History (Updated 05/15/20 @ 14:11 by Ida Maldonado NP, ECONOMIC HISTORY TEACHER-C) adopted: No household members: family housing: house current occupational status: employed current occupation: [employer] pets and animals: Yes history of recent travel: No sexually active: Yes Smoking Status: Former smoker second hand exposure: No alcohol intake: current alcohol intake frequency: holidays/special occasions only details: not while substance use type: does not use seatbelt use: always do you feel safe at home: Yes additional social history: BF- JR- Maintenance (Lara-11, [place]-9) EXAM Physical Exam Narrative Exam Narrative: Physical exam General: Patient does not appear in significant distress . Head: Normocephalic, Atraumatic Neck: No C-spine tenderness Cardiovascular: Regular rate, Regular rhythm Respiratory: No distress, CTA bilaterally Back: Nontender, Normal Inspection. Pelvis: There is tenderness over the coccyx and somewhat over the sacrum. Extremities: Full range of motion without any pain. Skin: No abrasions, no lacerations Neurological: Normal strength and sensation Const Vital Signs: 06/27/20 16:35 06/27/20 17:33 Temperature 97.0 F L Temperature Source Temporal Pulse Rate 78 Respiratory Rate 16 Respiratory Effort Normal Non-Labored Respiratory Depth Normal Respiratory Pattern Normal Blood Pressure 120/65 Blood Pressure Mean 83 Pulse Ox 97 Oxygen Delivery Method Room Air MDM MDM MDM Narrative Medical decision making narrative: Patient has a negative x-ray I will discharge her home with analgesia, she is told to use a pillow. Radiography Diagnostic Testing: Radiology Impression Sacrum and Coccyx X-Ray 06/27/20 18:00 IMPRESSION: Normal x-rays of the sacrum and coccyx. Electronically Signed: Neal Mendosa MD at 18:36 EDT , Service support , Coccyx x-ray read by myself and the radiologist is negative Discharge Plan Triage Chief Complaint: Fall ED Provider: Jerry Mayers Dx/Rx/DC Orders Clinical Impression: Coccygeal contusion Instructions: ED Coccyx or Sacrum Contusion Prescriptions: New hydrocodone-acetaminophen 5-325 mg tablet 1 tab PO BID PRN (Reason: pain) 3 Days Qty: 7 RF: 0 No Action venlafaxine [Effexor XR] 75 mg capsule,extended release 24hr 75 mg PO DAILY Qty: 90 RF: 2 lorazepam [Ativan] 1 mg tablet 1 mg PO DAILY PRN (Reason: anxiety) Qty: 10 RF: 0 Primary Care Provider: Jan Rodarte Referrals: Jan Rodarte MD [Primary Care Provider] - 2 Days Disposition Disposition: Home, self care
[2020-06-27] MEDS: oxyCODONE 5 MG Tablet PO (17:50)
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
[2020-06-27 19:34] VITALS: PULSE 68; RESP 16; O2SAT 98
== END 2020-06-27 19:35 | disposition home or self-care (01) ==
PROVIDERS: Emergency Provider Emergency Medicine; PCP Family Medicine
DX: S30.0XXA Contusion of lower back and pelvis, initial encounter (principal); W18.30XA Fall on same level, unspecified, initial encounter; Y93.9 Activity, unspecified; Y92.9 Unspecified place or not applicable; Y99.9 Unspecified external cause status; Z87.891 Personal history of nicotine dependence
CPT/HCPCS: 72220; 99283

== ENCOUNTER → 2021-10-15 | Outpatient (CLI) | payer OTHER, SELFPAY ==
[2021-10-21 08:00] LABS: HPV APTIMA, High Risk Negative (Negative)
== END | disposition home or self-care (01) ==
LOC: LABSPEC 14:23
PROVIDERS: PCP Family Medicine; Referring Provider Nurse Practitioner Women's Health; Visit Provider Nurse Practitioner Women's Health
DX: Z12.4 Encounter for screening for malignant neoplasm of cervix (principal)
CPT/HCPCS: 87624; 88175; G0145

== ENCOUNTER → 2022-10-28 | Outpatient (CLI) | payer BC, MEDICAID, SELFPAY ==
[2022-10-28 14:30] LABS: Absolute Lymphocyte Count 4.18 X10^3/uL (0.83-4.51); Absolute Neutrophil Count 8.4 X10^3/uL (2.0-7.7); Basophil# 0.06 X10^3/uL; Basophil% 0.4 % (0-1); Eosinophils% 0.7 % (0-5); Hematocrit 43.2 % (37-47); Hemoglobin 13.5 g/dL (12.0-15.0); Lymphocyte # 4.18 X10^3/ul (0.83-4.51); Lymphocyte % 31.1 % (19-41); Mean Corp Hgb Conc 31.3 g/dL (32-36); Mean Corpuscular Hgb 28.1 pg (27.0-32.0); Mean Corpuscular Volume 89.8 fL (81-99); Mean Platelet Vol. 9.4 fl (6.2-12.0); Monocyte# 0.69 X10^3/uL; Monocyte% 5.1 % (0-10); NRBC Flagged by Analyzer 0 % (0-5); Neutrophil # 8.35 X10^3/uL (2.7-7.7); Neutrophil % 62.4 % (47-70); Platelet Count 425 K/mm3 (150-450); RBC Distribution Width CV 12.4 % (11.6-14.6); RBC Distribution Width SD 40.9 fl (35.1-43.9); Red Blood Count 4.81 M/mm3 (4.2-5.4); White Blood Count 13.4 K/mm3 (4.4-11.0)
[2022-10-28 15:00] LABS: Hemoglobin A1c 5.6 % (3.8-5.6)
[2022-10-28 15:04] LABS: ALB/GLOB Ratio 0.9 RATIO (0.9-2.4); AST(SGOT) 19 U/L (15-37); Alanine Aminotransfer ALT/SGPT 31 U/L (13-56); Albumin, Serum 3.6 g/dL (3.2-5.0); Alkaline Phosphatase 74 U/L (45-117); Anion Gap 6 (5-15); BUN 10 mg/dL (7-18); BUN/Creat Ratio 15.3 RATIO (10-20); Chloride 105 mmol/L (98-107); Cholesterol 220 mg/dL (200); Creatinine, Serum 0.65 mg/dL (0.55-1.02); EST Glomerular Filtration Rate 112 mL/min (>60); Est Glom Filt Rate - Afr Amer 136 mL/min (>60); Globulin 4.1 g/dL (2.2-4.2); Glucose 82 mg/dL (74-106); High Density Lipoprotein 50 mg/dL; Potassium 4.2 mmol/L (3.5-5.1); Protein, Total 7.7 g/dL (6.4-8.2); Sodium Level 137 mmol/L (136-145); Triglycerides 153 mg/dL; Very Low Density Lipoprotein 31 mg/dL (5-40)
[2022-10-31 13:07] LABS: Vitamin D 1,25-Dihydroxy 38.1 pg/mL (24.8-81.5)
== END | disposition home or self-care (01) ==
LOC: LAB 13:42
PROVIDERS: PCP Family Medicine; Referring Provider Obstetrics & Gynecology; Visit Provider Obstetrics & Gynecology
DX: E66.8 Other obesity (principal)
CPT/HCPCS: 36415; 80053; 80061; 82652; 83036; 84443; 85025

== ENCOUNTER 2023-12-08 00:48 | Emergency (ER) | payer BC, SELFPAY ==
[2023-12-08 00:51] VITALS: BP 142/113; PULSE 73; RESP 18; TEMP 37.1; O2SAT 96; BMI 36.8
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
--- NOTE | 2023-12-08 01:12 | EDS_ITS ---
HPI HPI - Psych History of Present Illness Chief Complaint: Mental Health Narrative Narrative: Patient is a 33-year-old female with past medical history of depression who presents to the emergency department via police for a welfare check. According to the patient and her and her significant other got in an argument earlier this morning over their stepdaughter and notes that she went to work came home took care of the kids. States that when her significant other arrived they got an argument in the garage. Patient states that this was a verbal argument there was no physical altercation. Patient states that she left and went to a hotel room to get away from her significant other. She states that she does not want to see him. States that she does feel safe to return home if need be. Patient states that she has never tried to kill her self in the past. Patient states that she not take any pills or did anything to harm herself this evening. Patient states that she does not have any homicidal ideations. Patient states that she wants to go home with her sister. [facility] Medical History (Updated 12/08/23 @ 04:[address] Freddy Jones DO) Suicide attempt Depression Home Medications ?Medication ?Instructions ?Recorded ?Last Taken ?Type etonogestrel 0.12 mg-ethinyl 1 vag ring vaginal Q4W #3 ea 02/11/23 Unknown Rx estradiol 0.015 mg/24 hr vaginal ring (NuvaRing) venlafaxine 75 mg capsule,extended 75 mg PO DAILY #90 caps 02/11/23 Unknown Rx release 24 hr Allergy/AdvReac Type Severity Reaction Status Date / Time morphine Allergy Rash Verified 12/08/23 00:57 Family History Father Heart disease open heart surgery Surgical History H/O: History of gynecologic surgery H/O wisdom tooth extraction Social History adopted: No household members: family housing: house current occupational status: unemployed current occupation: [employer] pets and animals: Yes history of recent travel: No sexually active: Yes Smoking Status: Former smoker second hand exposure: No alcohol intake: current alcohol intake frequency: holidays/special occasions only details: not while substance use type: does not use seatbelt use: always do you feel safe at home: Yes 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[place], [place]) ROS ROS ED ROS Narrative Constitutional: Denies fevers, chills, headaches, lightheadedness, dizziness Eyes: Denies change in vision double vision blurry vision Cardiovascular: Denies chest pain or palpitations Respiratory: Denies coughing wheezing shortness of breath Abdomen: Denies abdominal pain nausea vomit diarrhea : Denies any painful urination, hematuria, polyuria Neurological: Denies any numbness, weakness or tingling Musculoskeletal: Denies back pain Skin: Denies rashes lesions EXAM Physical Exam Const Vital Signs: 12/08/23 00:51 12/08/23 01:51 Temperature 98.7 F Temperature Source Oral Pulse Rate 73 88 Respiratory Rate 18 16 Blood Pressure 142/113 H 135/75 H Blood Pressure Mean 122 95 Pulse Ox 96 99 Oxygen Delivery Method Room Air MDM MDM MDM Narrative Medical decision making narrative: Patient is a 33-year-old female who presented to the Emergency Department with a chief complaint of welfare check by police after being in a verbal altercation with her significant other. Patient once again denies any attempts at harming herself or plans to kill herself or kill anyone else. Patient will not be evaluated by crisis unless blood work is obtained and this will be ordered. Per police today noted that they saw screenshots of the patient's phone stating that she did not want to live anymore even though the patient denies all of this here in the emergency department tonight. Patient will be evaluated by crisis. Patient's CBC reviewed and showed a white blood count of 14,000 based on previous blood draws she has chronically elevated white blood cell count hemoglobin stable 13.5, platelet count normal at 4 9. Patient sodium normal at 140, potassium was 3.4, creatinine was noted to be normal at 0.71. Patient's test negative, urinalysis did not reveal any evidence of infection. Patient salicylate level less than 1.7, drug screen was negative, Tylenol level less than 2 and alcohol level less than 3. Crisis came and evaluated the patient at bedside and states that she can go home. Once again the patient is not suicidal homicidal. She is going home with her sister this morning. She does feel safe returning home once again. She is encouraged to follow-up with her primary care physician. She is encouraged return with worsening symptoms and concerns. She is agreeable this plan all question concerns answered she is discharged home in stable condition. Lab Data Labs: Laboratory Results - last 24 hr 12/08/23 12/08/23 00:59 01:24 WBC 14.4 H RBC 4.88 Hgb 13.5 Hct 41.5 MCV 85.0 MCH 27.7 MCHC 32.5 RDW Std Deviation 39.7 RDW Coeff of Jordon 12.8 Plt Count 409 MPV 9.5 Immature Gran % (Auto) 0.300 Neut % (Auto) 52.5 Lymph % (Auto) 40.8 [place] % (Auto) 5.3 Eos % (Auto) 0.8 Baso % (Auto) 0.3 Absolute Neuts (auto) 7.5 Absolute Lymphs (auto) 5.86 H Nucleated RBC % 0 Differential Comment SCANNED Sodium 140 Potassium 3.4 L Chloride 106 Carbon Dioxide 26.0 Anion Gap 8 BUN 9 Creatinine 0.71 Estim Creat Clear Calc 142.94 Est GFR (MDRD) Af Amer 122 Est GFR (MDRD) Non-Af 101 BUN/Creatinine Ratio 12.6 Glucose 104 Calcium 9.5 Serum , Qual NEGATIVE Urine Color Yellow Urine Clarity Clear Urine pH 6.0 Ur Specific [place] 1.015 Urine Protein 30 H Urine Glucose (UA) Normal Urine Ketones Negative Urine Occult Blood 250 H Urine Nitrite Negative Urine Bilirubin Negative Urine Urobilinogen Normal Ur Leukocyte Esterase Negative Urine RBC 5-10 SEEN Urine WBC 0 SEEN Ur Squamous Epith Cells 0 SEEN Urine Bacteria RARE Urine Mucus 0 SEEN Salicylates < 1.7 L Urine Opiates Screen NEGATIVE Urine Methadone Screen NEGATIVE Acetaminophen < 2.0 L Ur Barbiturates Screen NEGATIVE Ur Phencyclidine Scrn NEGATIVE Ur Amphetamines Screen NEGATIVE MDMA (Ecstasy) Screen NEGATIVE U Benzodiazepines Scrn NEGATIVE Urine Cocaine Screen NEGATIVE U Cannabinoids Screen NEGATIVE Ur Drug Screen Comment Ethyl Alcohol < 3.0 Discharge Plan Triage Chief Complaint: Mental Health ED Provider: Freddy Jones Dx/Rx/DC Orders Clinical Impression: Depression Prescriptions: No Action etonogestrel-ethinyl estradiol [NuvaRing] 0.12-0.015 mg/24 hr ring 1 vag ring vaginal Q4W Qty: 3 4RF venlafaxine 75 mg capsule,extended release 24hr 75 mg PO DAILY Qty: 90 4RF Primary Care Provider: Care Physician,No Primary Referrals: Jan Rodarte MD [Non-Staff] - Activity Restrictions/Additional Instructions: Follow-up with your primary care physician in the outpatient setting. Return with worsening symptoms or other concerns. Print Language: Algerian Disposition Disposition: Home, Self Care
[2023-12-08 01:18] LABS: Absolute Lymphocyte Count 5.86 X10^3/uL (0.83-4.51); Absolute Neutrophil Count 7.5 X10^3/uL (2.0-7.7); Basophil# 0.05 X10^3/uL; Basophil% 0.3 % (0-1); Eosinophil# 0.12 X10^3/uL; Eosinophils% 0.8 % (0-5); Hematocrit 41.5 % (37-47); Hemoglobin 13.5 g/dL (12.0-15.0); Lymphocyte # 5.86 X10^3/ul (0.83-4.51); Lymphocyte % 40.8 % (19-41); Mean Corp Hgb Conc 32.5 g/dL (32-36); Mean Corpuscular Hgb 27.7 pg (27.0-32.0); Mean Platelet Vol. 9.5 fl (6.2-12.0); Monocyte# 0.76 X10^3/uL; Monocyte% 5.3 % (0-10); NRBC Flagged by Analyzer 0 % (0-5); Neutrophil # 7.53 X10^3/uL (2.7-7.7); Neutrophil % 52.5 % (47-70); POSITIVE DIFFERENTIAL YES; Platelet Count 409 K/mm3 (150-450); RBC Distribution Width CV 12.8 % (11.6-14.6); RBC Distribution Width SD 39.7 fl (35.1-43.9); Red Blood Count 4.88 M/mm3 (4.2-5.4); White Blood Count 14.4 K/mm3 (4.4-11.0)
--- NOTE | 2023-12-08 01:27 | ED.RN ---
Dr. Jones asked if a sitter was needed for the patient. He replied no, she does not need one
[2023-12-08 01:29] LABS: Mucous, Urine 0 SEEN /hpf (<or=2+); Squamous Epithelial Cells - UA 0 SEEN /hpf (5-10); White Blood Cells 0 SEEN /hpf (0-5)
[2023-12-08 01:29] LABS: Internal QC Validated? YES +Cl - CLEAR BKGD; Pregnancy, Serum, hCG Quali. NEGATIVE Negative
[2023-12-08 01:30] LABS: Color, Urine Yellow (Yellow); Glucose, Dipstick Normal (Normal); Ketone-Dipstick Negative (Negative); Leukocyte Esterase-Dipstick Negative /ul (Negative); Nitrite-Dipstick Negative (Negative); Occult Blood-Urine 250 /ul (Negative); Protein-Dipstick 30 mg/dl (Negative); Specific Gravity, Urine 1.015 (1.002-1.030); Urine Bilirubin Dipstick Negative (Negative); Urine Clarity Clear (Clear); Urine Urobilinogen Normal (Normal)
--- NOTE | 2023-12-08 01:30 | ED.RN ---
Per Dr Jones patient does not require a sitter.
[2023-12-08 01:31] LABS: Differential Indicated SCAN CRITERIA MET
[2023-12-08 01:33] LABS: Anion Gap 8 (5-15); BUN 9 mg/dL (7-18); BUN/Creat Ratio 12.6 RATIO (10-20); Calcium,Total 9.5 mg/dL (8.5-10.1); Chloride 106 mmol/L (98-107); Creatinine, Serum 0.71 mg/dL (0.55-1.02); EST Glomerular Filtration Rate 101 mL/min (>60); Est Glom Filt Rate - Afr Amer 122 mL/min (>60); Estimated Creatinine Clearance 142.94 ml/min; Glucose 104 mg/dL (74-106); Potassium 3.4 mmol/L (3.5-5.1); Sodium Level 140 mmol/L (136-145)
[2023-12-08 01:36] LABS: Alcohol, Blood (Medical)-Serum < 3.0 mg/dL
[2023-12-08 01:39] LABS: Bacteria RARE /hpf (None Seen); Red Blood Cells-Urine 5-10 SEEN /hpf (0-5)
[2023-12-08 01:45] LABS: Salicylate < 1.7 mg/dL (2.8-20.0)
[2023-12-08 01:51] VITALS: BP 135/75; PULSE 88; RESP 16; O2SAT 99
[2023-12-08 01:54] LABS: Acetaminophen (Tylenol) Level < 2.0 ug/mL (10.0-30.0)
[2023-12-08 01:55] LABS: Differential Comment SCANNED
[2023-12-08 01:56] LABS: Amphetamine Urine VISTA NEGATIVE (<1000 ng/mL); Barbiturate Urine VISTA NEGATIVE (< 200 ng/mL); Benzodiazepine Urine VISTA NEGATIVE (< 200 ng/mL); Cocaine Urine VISTA NEGATIVE (< 300 ng/mL); Ecstacy Urine VISTA NEGATIVE (< 500 ng/mL); Methadone Urine VISTA NEGATIVE (< 300 ng/mL); PCP Urine VISTA NEGATIVE (< 25 ng/mL); THC Urine VISTA NEGATIVE (< 50 ng/mL); Vista UDS pH Range 5
[2023-12-08 04:42] VITALS: BP 115/77; PULSE 79; RESP 16; TEMP 36.8; O2SAT 95
== END 2023-12-08 04:47 | disposition home or self-care (01) ==
PROVIDERS: Emergency Provider Emergency Medicine; Visit Provider Emergency Medicine
DX: F32.A Depression, unspecified (principal); Z63.0 Problems in relationship with spouse or partner; Z91.51 Personal history of suicidal behavior; Z79.899 Other long term (current) drug therapy; Z87.891 Personal history of nicotine dependence
CPT/HCPCS: 80048; 80143; 80179; 80307; 81001; 82077; 84703; 85025; 99284

== ENCOUNTER → 2024-06-15 | Outpatient (CLI) | payer BC, SELFPAY | END | disposition home or self-care (01) | PROVIDERS: Referring Provider Nurse Practitioner Family; Visit Provider Nurse Practitioner Family | DX: Z20.2 Contact with and (suspected) exposure to infections with a predominantly sexual mode of transmission (principal) | CPT/HCPCS: 36415; 86695; 86696 ==

== ENCOUNTER 2024-12-22 11:08 | Emergency (ER) | payer BC, SELFPAY ==
[2024-12-22 11:09] VITALS: BP 147/98; PULSE 100; RESP 22; TEMP 36.6; O2SAT 100; BMI 31.1
--- NOTE | 2024-12-22 11:27 | EDS_ITS ---
HPI History of Present Illness Chief Complaint: Anxiety Informant: patient and spouse/S.O. Narrative Narrative: 34-year-old female presenting to the emergency room with chief complaint of a panic attack. Patient has a history of anxiety/panic attacks. 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 She states that she has used Ativan in the past. She does not currently have any. She states that she was typically prescribed 5 pills that would last her about 2 years. She has a upcoming appointment with a new provider Leobardo. She states that she does feel nauseated. [facility] Medical History Suicide attempt Depression Home Medications ?Medication ?Instructions ?Recorded ?Last Taken ?Type semaglutide (weight loss) 0.5 0.5 mg subcut QWEEK 05/30 09/22 Unknown History mg/0.5 mL subcutaneous pen injector etonogestrel 0.12 mg-ethinyl 1 vag ring vaginal Q4W #3 ea 07/05/24 Unknown Rx estradiol 0.015 mg/24 hr vaginal ring (NuvaRing) venlafaxine 75 mg capsule,extended 75 mg PO DAILY #90 caps 11/01/24 Unknown Rx release 24 hr doxycycline hyclate 100 mg capsule 100 mg PO BID 12/22 Unknown History lorazepam 1 mg tablet (Ativan) 1 mg PO TID PRN anxiety #5 tabs 12/22/24 Unknown Rx Allergy/AdvReac Type Severity Reaction Status Date / Time morphine Allergy Rash Verified 12/22/24 11:11 Family History Father Heart disease open heart surgery Surgical History H/O: History of gynecologic surgery H/O wisdom tooth extraction Social History adopted: No household members: family housing: house current occupational status: unemployed current occupation: [employer] pets and animals: Yes history of recent travel: No sexually active: Yes Smoking Status: Former smoker second hand exposure: No alcohol intake: current alcohol intake frequency: holidays/special occasions only details: not while substance use type: does not use seatbelt use: always do you feel safe at home: Yes 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[place], [place]) ROS ROS ED Constitutional Constitutional ED: Denies chills, fever(s) or weight loss Eyes Eyes: Denies change in vision or diplopia ENT ENT ED: Denies ear pain, rhinorrhea or sore throat Cardiovascular Cardiovascular: Reports palpitations and racing heartbeat; Denies chest pain or orthopnea Respiratory/Chest Respiratory/Chest: Reports dyspnea; Denies cough or orthopnea Gastrointestinal Gastrointestinal: Reports nausea; Denies abdominal pain, diarrhea or vomiting Genitourinary Genitourinary ED: Denies dysuria, hematuria or urinary frequency Musculoskeletal Musculoskeletal: Denies arthralgias or myalgias Integumentary Denies abscess or rash Neurologic Neurologic: Reports paresthesias RUE, RLE, LUE and LLE; Denies headache(s) or weakness Psychiatric Psychiatric: Reports anxiety and depression; Denies suicidal ideation or suicidal thoughts Endocrine Endocrinology: Denies polydipsia, polyphagia or polyuria Allergic/Immunologic Allergic/Immunologic ED: Denies mouth swelling, tongue swelling or urticaria EXAM Physical Exam Narrative Exam Narrative: Patient appears very on edge. She is very tense and tearful. She has difficulty speaking her symptoms and reliving the events that resulted in this event. Const Vital Signs: 12/22/24 11:09 Temperature 98 F Temperature Source Temporal Pulse Rate 100 Respiratory Rate 22 H Blood Pressure 147/98 H Blood Pressure Mean 114 Pulse Ox 100 Oxygen Delivery Method Room Air Positive well nourished and well developed General Appearance ED: well developed HEENT Reports normocephalic, head/scalp atraumatic and moist mucous membranes Eyes PERRL and EOMs intact bilaterally Neck no lymphadenopathy, supple and no JVD Resp normal respiratory effort and clear to auscultation bilaterally Cardio regular rate, regular rhythm and no murmurs GI normal to inspection, nondistended, normoactive bowel sounds and non-tender Palpation: soft Back/Spine no CVA tenderness and normal ROM Extremity normal to inspection General Extremety ED: Negative for edema General Extremity: Negative for edema Neuro oriented x3 and CN's II-XII intact bilaterally Sensorium / Orientation: alert Motor Exam: strength 5/5 throughout Psych Mood & Affect: anxious and tearful; Negative for depressed Skin no rashes or lesions noted and no wounds MDM MDM MDM Narrative Medical decision making narrative: Differential diagnosis includes generalized anxiety disorder panic attack cardiac dysrhythmia gastroenteritis Patient received a dose of Zofran and Ativan. Repeat examination finds the patient to be feeling significantly improved. I did an [facility] report and happy to prescribe the patient a few Ativan as it seems consistent with her history I did help her today. She already has new provider follow-up arranged. History & Record Review Discussion w/independent historian: Patient and Significant other Discharge Plan Triage Chief Complaint: Anxiety ED Provider: Kevin Mancera Dx/Rx/DC Orders Clinical Impression: Panic attack, Generalized anxiety disorder Instructions: ED Panic Attack Prescriptions: New lorazepam [Ativan] 1 mg tablet 1 mg PO TID PRN (Reason: anxiety) Qty: 5 0RF No Action semaglutide (weight loss) 0.5 mg/0.5 mL pen injector 0.5 mg subcut QWEEK Rx Instructions: administer weeks 5 through 8 of therapy doxycycline hyclate 100 mg capsule 100 mg PO BID etonogestrel-ethinyl estradiol [NuvaRing] 0.12-0.015 mg/24 hr ring 1 vag ring vaginal Q4W Qty: 3 4RF venlafaxine 75 mg capsule,extended release 24hr 75 mg PO DAILY Qty: 90 3RF Primary Care Provider: Care Physician,No Primary Referrals: Care Physician,No Primary [Primary Care Provider, Medical] Activity Restrictions/Additional Instructions: Please keep your follow-up appointment that is already scheduled. Please return if worsening symptoms Print Language: Liberian Disposition Disposition: Home, Self Care
[2024-12-22 12:53] VITALS: BP 116/78; PULSE 66; RESP 15; TEMP 36.7; O2SAT 99
== END 2024-12-22 12:58 | disposition home or self-care (01) ==
PROVIDERS: Emergency Provider Emergency Medicine; Visit Provider Emergency Medicine
DX: F41.0 Panic disorder [episodic paroxysmal anxiety] (principal); F41.1 Generalized anxiety disorder; Z87.891 Personal history of nicotine dependence; R06.00 Dyspnea, unspecified
CPT/HCPCS: 99283